=== PATIENT | female | born 1980 | race Hispanic/Latino ===

== ENCOUNTER 2025-09-29 13:22 | Emergency (ER) | payer OTHER ==
[2025-09-29] MEDS ORDERED: Fluorescein Opthalmic Strip ONE (13:50)
[2025-09-29] MEDS ORDERED: Ketorolac Tromethamine 30 MG (1 mL) VIAL ONE (13:50)
[2025-09-29] MEDS ORDERED: Proparacaine 0.5% Opth 15 ML BOT ONE (13:50)
[2025-09-29 14:25] LABS: #Basophils 0.05 10x3/uL (0.0-0.2); #Eosinophils 0.79 10x3/uL (0.0-0.5); #Monocytes 0.93 10x3/uL (0.0-1.1); #Neutrophils 8.26 10x3/uL (1.5-8.4); %Basophils 0.4 % (0.0-2.0); %Eosinophils 6.2 % (0.0-6.0); %Lymphocytes 21.0 % (18.0-47.0); %Monocytes 7.3 % (0.0-10.0); %Neutrophils 64.8 % (40.0-75.0); Hematocrit 43.7 % (34.9-44.5); Hemoglobin 14.4 g/dL (12.0-15.5); Mean Corpuscular Hemoglobin 28.1 pg (27.0-33.0); Mean Corpuscular Volume 85.2 fL (81.6-98.3); Platelet Count 412 10x3/uL (150-450); Red Blood Cell (RBC) Count 5.13 10x6/uL (3.90-5.03); White Blood Cell (WBC) Count 12.75 10x3/uL (3.5-10.5)
[2025-09-29 14:41] LABS: ALT (SGPT) 167 U/L (Less than 34); AST (SGOT) 343 U/L (11-34); Albumin 4.3 g/dL (3.1-4.5); Alkaline Phosphatase 70 U/L (40-110); Anion Gap 17 mmol/L (10-20); BUN (Urea Nitrogen) 9 mg/dL (7.0-18.7); Bilirubin, Total 0.2 mg/dL (0.3-1.2); Calc. Creatinine Clearance 0 mL/min (70-130); Calcium 9.3 mg/dL (7.8-10.44); Carbon Dioxide 21 mmol/L (22-29); Chloride 107 mmol/L (98-107); Globulin 3.0 g/dL (2.4-3.5); Glucose 163 mg/dL (70-105); Lipase 35 U/L (8-78); Magnesium 2.0 mg/dL (1.6-2.6); Potassium 3.7 mmol/L (3.5-5.1); Sodium 141 mmol/L (136-145)
[2025-09-29 14:42] LABS: Troponin I Less than 0.010 ng/mL (< 0.028)
== END 2025-09-29 16:03 | disposition home or self-care (01) ==
LOC: CSHERS 13:22
DX: H10.11 Acute atopic conjunctivitis, right eye (principal); R07.81 Pleurodynia; I10 Essential (primary) hypertension; E03.9 Hypothyroidism, unspecified; E11.9 Type 2 diabetes mellitus without complications; K31.84 Gastroparesis; E28.2 Polycystic ovarian syndrome
CPT/HCPCS: 71045; 80053; 83690; 83735; 83880; 84484; 85025; 85379; 93005; 96374; J1885

== ENCOUNTER 2025-10-20 23:30 | Emergency (ER) | payer OTHER ==
[2025-10-21] MEDS ORDERED: predniSONE 20 MG TAB ONE (01:25)
[2025-10-21] MEDS ORDERED: diphenhydrAMINE 25 MG CAP ONE (01:25)
[2025-10-21 01:30] LABS: #Basophils 0.04 10x3/uL (0.0-0.2); #Eosinophils 0.61 10x3/uL (0.0-0.5); #Monocytes 0.70 10x3/uL (0.0-1.1); #Neutrophils 3.93 10x3/uL (1.5-8.4); %Basophils 0.5 % (0.0-2.0); %Eosinophils 7.6 % (0.0-6.0); %Lymphocytes 33.5 % (18.0-47.0); %Monocytes 8.8 % (0.0-10.0); %Neutrophils 49.2 % (40.0-75.0); Hematocrit 39.8 % (34.9-44.5); Hemoglobin 13.1 g/dL (12.0-15.5); Mean Corpuscular Hemoglobin 28.4 pg (27.0-33.0); Mean Corpuscular Volume 86.3 fL (81.6-98.3); Platelet Count 328 10x3/uL (150-450); Red Blood Cell (RBC) Count 4.61 10x6/uL (3.90-5.03); White Blood Cell (WBC) Count 7.98 10x3/uL (3.5-10.5)
[2025-10-21 01:46] LABS: ALT (SGPT) 57 U/L (Less than 34); AST (SGOT) 63 U/L (11-34); Albumin 4.0 g/dL (3.1-4.5); Alkaline Phosphatase 77 U/L (40-110); Anion Gap 13 mmol/L (10-20); BUN (Urea Nitrogen) 10 mg/dL (7.0-18.7); Bilirubin, Total 0.1 mg/dL (0.3-1.2); Calc. Creatinine Clearance 0 mL/min (70-130); Calcium 9.5 mg/dL (7.8-10.44); Carbon Dioxide 25 mmol/L (22-29); Chloride 106 mmol/L (98-107); Globulin 2.7 g/dL (2.4-3.5); Glucose 223 mg/dL (70-105); Potassium 4.0 mmol/L (3.5-5.1); Sodium 140 mmol/L (136-145)
[2025-10-21 01:53] LABS: Troponin I Less than 0.010 ng/mL (< 0.028)
== END 2025-10-21 02:40 | disposition home or self-care (01) ==
LOC: CSHERS 23:30
DX: T78.40XA Allergy, unspecified, initial encounter (principal); I10 Essential (primary) hypertension; E11.43 Type 2 diabetes mellitus with diabetic autonomic (poly)neuropathy; K31.84 Gastroparesis; E03.9 Hypothyroidism, unspecified; Z79.890 Hormone replacement therapy; Z79.899 Other long term (current) drug therapy; Z79.84 Long term (current) use of oral hypoglycemic drugs
CPT/HCPCS: 36415; 80053; 84484; 85025; 99283; J7512

== ENCOUNTER 2025-10-24 19:07 | Emergency (ER) | payer OTHER ==
[~2025-10-24 19:07] MED LIST: Iopamidol 300 61% 100 ML VIAL FS ONE
[2025-10-24 20:01] LABS: Glucose, Urine (Dipstick) >=1000 mg/dL (Negative); Leukocyte Negative (Negative); Protein, Urine (Dipstick) Negative (Neg-Trace); Specific Gravity, Urine 1.005 (1.005-1.030)
[2025-10-24 20:06] LABS: Pregnancy Test - Urine (BHCG) Negative (Negative); Pregu Control Background? CLEAR/WHITE (CLR/WHITE); Pregu Control Bar Appear? YES (CONTROL BAR)
[2025-10-24 20:56] LABS: Bacteria/HPF 1+ HPF (None Seen); CAUTI Indications for Culture Pelvic or flank pain; RBC/HPF 0-3 HPF (0-3); WBC/HPF 0-3 HPF (0-3)
[2025-10-24 20:57] LABS: Urine Culture Reflex No No
[2025-10-24 23:42] LABS: #Basophils 0.04 10x3/uL (0.0-0.2); #Eosinophils 0.60 10x3/uL (0.0-0.5); #Monocytes 0.82 10x3/uL (0.0-1.1); #Neutrophils 5.26 10x3/uL (1.5-8.4); %Basophils 0.4 % (0.0-2.0); %Eosinophils 6.1 % (0.0-6.0); %Lymphocytes 30.7 % (18.0-47.0); %Monocytes 8.4 % (0.0-10.0); %Neutrophils 53.8 % (40.0-75.0); Hematocrit 41.6 % (34.9-44.5); Hemoglobin 13.9 g/dL (12.0-15.5); Mean Corpuscular Hemoglobin 28.5 pg (27.0-33.0); Mean Corpuscular Volume 85.2 fL (81.6-98.3); Platelet Count 378 10x3/uL (150-450); Red Blood Cell (RBC) Count 4.88 10x6/uL (3.90-5.03); White Blood Cell (WBC) Count 9.78 10x3/uL (3.5-10.5)
[2025-10-24 23:53] LABS: ALT (SGPT) 93 U/L (Less than 34); AST (SGOT) 126 U/L (11-34); Albumin 4.0 g/dL (3.1-4.5); Alkaline Phosphatase 64 U/L (40-110); Anion Gap 14 mmol/L (10-20); BUN (Urea Nitrogen) 11 mg/dL (7.0-18.7); Bilirubin, Total 0.2 mg/dL (0.3-1.2); Calc. Creatinine Clearance 0 mL/min (70-130); Calcium 9.2 mg/dL (7.8-10.44); Carbon Dioxide 27 mmol/L (22-29); Chloride 101 mmol/L (98-107); Globulin 2.8 g/dL (2.4-3.5); Glucose 119 mg/dL (70-105); Potassium 3.9 mmol/L (3.5-5.1); Sodium 138 mmol/L (136-145)
[2025-10-25] MEDS ORDERED: diphenhydrAMINE 50 MG/ML VIAL ONE (00:21)
== END 2025-10-25 06:54 | disposition home or self-care (01) ==
LOC: CSHERS 19:07
DX: R35.0 Frequency of micturition (principal); K52.9 Noninfective gastroenteritis and colitis, unspecified; R81 Glycosuria; K76.0 Fatty (change of) liver, not elsewhere classified; I10 Essential (primary) hypertension; E11.43 Type 2 diabetes mellitus with diabetic autonomic (poly)neuropathy; K31.84 Gastroparesis; E03.9 Hypothyroidism, unspecified; Z79.84 Long term (current) use of oral hypoglycemic drugs; Z79.899 Other long term (current) drug therapy; Z79.890 Hormone replacement therapy
CPT/HCPCS: 74177; 76856; 80053; 81001; 81025; 85025; 86140; 93976; 96374; J1200; Q9967